=== PATIENT | male | born 1985 ===

== ENCOUNTER 2019-10-04 14:06 | Emergency (ER) | payer OTHER ==
--- NOTE | 2019-10-04 16:03 | Event Note ---
ED Screening Note Date of service: 10/04/19 Time: 16:01 ED Screening Note: 34 y o male presents with sob on rest and exertion cc of chest tightness and pain with inhaling no PMH This initial assessment/diagnostic orders/clinical plan/treatment(s) is/are subject to change based on patients health status, clinical progression and re- assessment by fellow clinical providers in the ED. Further treatment and workup at subsequent clinical providers discretion. Patient/guardian urged not to elope from the ED as their condition may be serious if not clinically assessed and managed. Initial orders include: cxr duoneb in triage
[2019-10-04] MEDS ORDERED: IPRATROPIUM/ALBUTEROL SULFATE 3 ML AMPUL.NEB IH ONE (16:05)
--- NOTE | 2019-10-04 16:27 | XRay Report ---
CHEST 2 VIEWS INDICATION: cough/sob. COMPARISON: None. FINDINGS: Support devices: None. Heart: Upper limits of normal. Lungs/Pleura: No acute air space or interstitial disease. No significant pleural effusion. IMPRESSION: Heart size upper limits of normal. Signer Name: Tutu Marroquin MD Signed: 10/04/2019 4:23 PM Workstation Name: [id number]
--- NOTE | 2019-10-04 19:28 | Emergency Department Report ---
ED General Adult HPI - General Chief complaint: Dyspnea/Respdistress Stated complaint: MARTHA/COUGH Time Seen by Provider: 10/04/19 18:41 Source: patient Mode of arrival: Ambulatory Limitations: No Limitations - History of Present Illness Initial comments: 34-year-old male presents to the emergency -: days(s) (2) Consistency: constant Improves with: none Worsens with: none Associated Symptoms: cough (a sensation of wheezing). denies: confusion, chest pain, diaphoresis, loss of appetite, nausea/vomiting, weakness - Related Data Previous Rx's Medication Instructions Recorded Last Taken Type ALBUTEROL Inhaler (OR & NICU) 2 puff IH QID PRN #1 inhalation 10/04/19 Unknown Rx [ProAir HFA Inhaler] guaiFENesin/CODEINE [Robitussin AC] 5 ml PO Q6H PRN #120 ml 10/04/19 Unknown Rx predniSONE [Deltasone] 50 mg PO QDAY #5 tab 10/04/19 Unknown Rx Allergies Allergy/AdvReac Type Severity Reaction Status Date / Time No Known Allergies Allergy Unverified 10/04/19 14:15 ED Review of Systems ROS: Stated complaint: MARTHA/COUGH Other details as noted in HPI Comment: All other systems reviewed and negative ED Past Medical Hx - Past Medical History Previous Medical History?: No - Surgical History Past Surgical History?: No - Social History Smoking Status: Never Smoker Substance Use Type: None - Medications Home Medications: Home Medications Medication Instructions Recorded Confirmed Last Taken Type ALBUTEROL Inhaler (OR & NICU) 2 puff IH QID PRN #1 inhalation 10/04/19 Unknown Rx [ProAir HFA Inhaler] guaiFENesin/CODEINE [Robitussin AC] 5 ml PO Q6H PRN #120 ml 10/04/19 Unknown Rx predniSONE [Deltasone] 50 mg PO QDAY #5 tab 10/04/19 Unknown Rx ED Physical Exam - General Limitations: No Limitations General appearance: alert, in no apparent distress - Head Head exam: Present: atraumatic, normocephalic - Eye Eye exam: Present: normal appearance, PERRL, EOMI Pupils: Present: normal accommodation - ENT ENT exam: Present: normal exam, mucous membranes moist, TM's normal bilaterally - Neck Neck exam: Present: normal inspection, full ROM - Respiratory Respiratory exam: Present: normal lung sounds bilaterally. Absent: respiratory distress, wheezes, rales, rhonchi, chest wall tenderness, accessory muscle use, decreased breath sounds, prolonged expiratory - Cardiovascular Cardiovascular Exam: Present: regular rate, normal rhythm. Absent: bradycardia, tachycardia, systolic murmur, diastolic murmur, rubs, gallop - GI/Abdominal GI/Abdominal exam: Present: soft, normal bowel sounds - Rectal Rectal exam: Present: deferred - Extremities Exam Extremities exam: Present: normal inspection - Back Exam Back exam: Present: normal inspection - Neurological Exam Neurological exam: Present: alert, oriented X3 - Psychiatric Psychiatric exam: Present: normal affect, normal mood - Skin Skin exam: Present: warm, dry, intact, normal color. Absent: rash ED Course Vital Signs 10/04/19 16:07 Temperature 97.8 F Pulse Rate 77 Respiratory 22 Rate Blood Pressure 132/84 [Left] O2 Sat by Pulse 97 Oximetry Critical care attestation.: If time is entered above; I have spent that time in minutes in the direct care of this critically ill patient, excluding procedure time. ED Disposition Clinical Impression: Cough Disposition: DC-01 TO HOME OR SELFCARE Is pt being admited?: No Does the pt Need Aspirin: No Condition: Stable Instructions: Dextromethorphan (By mouth), Acute Cough (ED), Reactive Airways Disease (ED) Prescriptions: predniSONE [Deltasone] 50 mg PO QDAY #5 tab ALBUTEROL Inhaler (OR & NICU) [ProAir HFA Inhaler] 2 puff IH QID PRN #1 inhalation PRN Reason: Shortness Of Breath guaiFENesin/CODEINE [Robitussin AC] 5 ml PO Q6H PRN #120 ml PRN Reason: Cough Referrals: YESSENIA CEDEÑO MD [Staff Physician] - 3-5 Days
[2019-10-04 20:38] VITALS: BP 108/71
== END 2019-10-04 19:55 | disposition home or self-care (01) ==
LOC: ED 14:06
DX: R05 Cough (principal)
CPT/HCPCS: 71046; 99283